=== PATIENT | male | born 1985 | race Caucasian/White ===

== ENCOUNTER 2022-04-17 10:40 | Emergency (ER) | payer SELFPAY ==
[2022-04-17] MEDS ORDERED: Ketorolac 60 MG/2 ML SDV IM ONE (11:26)
[2022-04-17] MEDS ORDERED: Orphenadrine 100 MG Tab.ER PO ONE (11:27)
== END 2022-04-17 13:00 | disposition home or self-care (01) ==
LOC: JD.ED 10:40
DX: M54.50 Low back pain, unspecified (principal); Z88.0 Allergy status to penicillin
CPT/HCPCS: 96372; 99283; A9270; J1885

== ENCOUNTER 2022-05-27 18:34 | Emergency (ER) | payer SELFPAY ==
[2022-05-27] MEDS ORDERED: Ketorolac 60 MG/2 ML SDV IM ONE (19:39)
[2022-05-27] MEDS ORDERED: Orphenadrine 100 MG Tab.ER PO ONE (19:39)
[2022-05-27] MEDS ORDERED: Lidocaine 4% 1 each Patch TOP ONE (19:40)
== END 2022-05-27 20:43 | disposition home or self-care (01) ==
LOC: JD.ED 18:34
DX: M54.50 Low back pain, unspecified (principal); Z88.0 Allergy status to penicillin
CPT/HCPCS: 96372; 99283; A9270; J1885